=== PATIENT | female | born 2000 | race Caucasian/White ===

== ENCOUNTER 2023-10-05 18:28 | Emergency (ER) | payer OTHER, SELFPAY ==
[2023-10-05 18:29] VITALS: BMI 20.2
[2023-10-05 18:31] VITALS: BP 119/85
[2023-10-05 18:55] LABS: % Basophils 0.4 % (0-2); % Eosinophils 0.1 % (0-6); % Immature Granulocytes 0.2 % (0-0.5); % Lymphocytes 20.6 % (20.5-51.1); % Monocytes 5.7 % (1.7-9.3); Absolute Monocytes 0.6 10^3/uL (0.1-0.6); Absolute Neutrophils 7.1 10^3/uL (1.4-6.5); Hematocrit 39.2 % (37.0-47.0); Hemoglobin 13.5 g/dL (12.0-16.0); Mean Corp Hgb Conc. 34.4 g/dL (33.0-37.0); Mean Corpuscular Volume 92.9 fL (81.0-99.0); Mean Platelet Volume 9.1 fL (7.4-10.4); Nucleated Red Blood Cells % 0 %; Platelet Count 212 10^3/uL (130-400); Red Blood Cell Count 4.22 10^6/uL (4.20-5.40); Red Cell Dist. Width 13.6 % (11.5-14.5); White Blood Cell Count 9.7 10^3/uL (4.8-10.8)
[2023-10-05 19:07] LABS: HCG, Serum Qualitative Screen Negative
[2023-10-05 19:11] LABS: COVID-19 Antigen Negative (Negative)
[2023-10-05 19:12] LABS: ALT (SGPT) 29 U/L (0-35); AST (SGOT) 42 U/L (14-36); Albumin 4.3 g/dl (3.5-5.0); Alkaline Phosphatase 81 U/L (38-126); Blood Urea Nitrogen 15 mg/dl (7-17); Calcium 9.5 mg/dl (8.4-10.2); Carbon Dioxide 21 mmol/L (22-30); Chloride 105 mmol/L (98-107); Glucose 122 mg/dl (70-99); Potassium 3.6 mmol/L (3.5-5.1); Sodium 133 mmol/L (135-145); Total Bilirubin 0.6 mg/dl (0.2-1.3); eGFR > 60.00
[2023-10-05 20:08] VITALS: BP 114/65
--- NOTE | 2023-10-05 20:38 | ED.GENMED ---
History of Present Illness
General
Chief Complaint: Headache
Time Seen by Provider: 10/05/23 19:54
Travel History
Have you had any contact with someone who has COVID-19?: No
Do you have any symptoms of coronavirus? Fever > 100 degrees, chills, cough, shortness of breath, sore throat, loss of taste or smell, muscle aches, or headache?: No
History of Present Illness
History of Present Illness:
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 States the headache did resolve briefly for several
hours yesterday before returning. Headache was gradual in onset, associated shortness of air, nausea, and vomiting. No fevers or chills. No prior hx of migraines. LMP 2 weeks ago
Review of Systems
Review of Systems
Allergies reviewed?: Yes
All Other Systems: ROS reviewed and negative except as documented in HPI and ROS
Phy Exam
Physical Exam
Physical Exam:
GEN: Well appearing, NAD, WDWN
HEENT: Oral mucosa moist, no scleral icterus, no nasal congestion
Cardiac: Regular rate
Lung: No respiratory distress, no tachypnea
MSK: No gross deformity or injuries
Skin: Good color, no pallor or jaundice, no rashes
Neuro: AO x3; CN II-XII grossly intact. BUE strength 5/5 in all taveras, sensation intact and symmetric. BLE strength 5/5 in all taveras, sensation intact and symmetric
Psych: Calm, cooperative
Course
Orders/Labs/Results
Orders:
Orders
10/05/23 18:35
Test Result ONCE
10/05/23 18:46
COVID-19 Antigen Urgent
Source: Nasal Swab
Complete Blood Count/With Diff Urgent
Comprehensive Metabolic Panel Urgent
HCG, Serum Qualitative Screen Urgent
Influenza A+B Rapid Molecular Urgent
CESAR Source: Nasal Swab
Specimen Description:
10/05/23 20:37
0.9% Sodium Chloride 1000 ml [Nss] 1,000 ml IV BOLUS
Diphenhydramine [Benadryl] 12.5 mg IV NOW STA
Ketorolac [Toradol] 15 mg IV NOW STA
Metoclopramide [Reglan] 10 mg IV NOW STA
10/05/23 22:23
Acetaminophen [Tylenol] 1,000 mg PO NOW STA
Abnormal Lab Results
10/05/23
18:46
MCH 32.0 H pg
(27.0-31.0)
Absolute Neuts (auto) 7.1 H 10^3/uL
(1.4-6.5)
Sodium 133 L mmol/L
(135-145)
Carbon Dioxide 21 L mmol/L
(22-30)
Glucose 122 H mg/dl
(70-99)
AST 42 H U/L
(14-36)
10/05/23 18:46
10/05/23 18:46
Vital Signs
Initial and Last Documented VS:
Initial Vital Signs
Temp Pulse Resp BP Pulse Ox
98.3 F 71 18 119/85 96
10/05/23 18:31 10/05/23 18:31 10/05/23 18:31 10/05/23 18:31 10/05/23 18:31
Last Documented Vital Signs
Temp Pulse Resp BP Pulse Ox
98.3 F 71 18 105/53 97
10/05/23 18:31 10/05/23 18:31 10/05/23 18:31 10/05/23 22:00 10/05/23 22:15
MDM/Problems Addressed
MDM/Problems Addressed:
No indication for neuroimaging as the patient is neurologically intact. Headache resolved with treatment emergency department. Discussed further supportive care
*Critical Care Note
Total Time (30-74mins, 75-104mins- exclusive of procedures): Not Applicable
ED Attending Note
-
Portions of this chart may have been created with voice recognition software.� Occasional wrong word or��sound alike� substitutions may have occurred due to the inherent limitations of voice recognition software.
Discharge Plan
Departure
Patient Disposition: Home (Routine Discharge)
Date of Disposition: 10/05/23
Time of Disposition: 22:23
Patient with high blood pressure during this ER visit?: No
Discharge Problem:
Headache, migraine
Instructions: Migraines (DC)
Prescriptions:
No Action
No Current Medications
0
Interventions
Interventions:
*Risk Screen - Suicide Last Done: 10/05/23 18:33
*General Assessment Last Done: 10/05/23 18:33
*Neglect/Abuse Screening Last Done: 10/05/23 18:33
ED- Fall Risk Assessment Last Done: 10/05/23 22:47
*ED COVID-19 Vaccine History Last Done: 10/05/23 18:33
*Nursing Disposition Last Done: 10/05/23 22:47
ED- Neurological Assessment Last Done: 10/05/23 20:10
Discharge Date and Time
Discharge Date/Time: 10/05/23 22:48
Print Language: GEORGIAN
[2023-10-05] MEDS: NSS 1000 IV (20:52)
[2023-10-05] MEDS: TORADOL 15 MG IV (20:52)
[2023-10-05] MEDS: REGLAN 10 MG IV (20:54)
[2023-10-05] MEDS: BENADRYL 12.5 MG IV (20:56)
[2023-10-05 21:00] VITALS: BP 119/77
[2023-10-05 22:00] VITALS: BP 105/53
[2023-10-05] MEDS: TYLENOL 1000 MG PO (22:30)
== END 2023-10-05 22:48 | disposition home or self-care (01) ==
LOC: EMR 18:28
PROVIDERS: Student in an Organized Health Care Education/Training Program; EMERGENCY PHYSICIAN Emergency Medicine; FAMILY PHYSICIAN Physician Assistant
DX: G43.909 Migraine, unspecified, not intractable, without status migrainosus (principal); Z11.52 Encounter for screening for COVID-19
CPT/HCPCS: 99284; 96374; 96375 ×2; 96361 ×2; 80053; 84703; 85025; 87502; 87811

== ENCOUNTER 2023-10-06 16:04 | Emergency (ER) | payer OTHER, SELFPAY ==
[2023-10-06 16:05] VITALS: BP 118/73; BMI 20.4
--- NOTE | 2023-10-06 16:58 | ED.GENMED ---
History of Present Illness
General
Chief Complaint: Headache
Source: patient
Time Seen by Provider: 10/06/23 16:41
Travel History
Have you had any contact with someone who has COVID-19?: No
Do you have any symptoms of coronavirus? Fever > 100 degrees, chills, cough, shortness of breath, sore throat, loss of taste or smell, muscle aches, or headache?: No
History of Present Illness
History of Present Illness:
23-year-old female presents to the emergency room complaining of headache. Patient was seen here in the emergency yesterday for similar complaint. She began having this headache 3 days ago. It began as a mild to moderate headache and has
increased in intensity. She denies focal weakness numbness or tingling. She does have associated nausea and vomiting. She has light sensitivity and noise sensitivity. Patient felt better after being discharged yesterday but her headache
returned. No recent travel. No recent illness. Patient tested negative for COVID yesterday as well as other lab studies were unremarkable.
Phy Exam
Physical Exam
Physical Exam:
General: Awake, Alert, Oriented X3. Patient peers uncomfortable
Vitals: Afebrile, normal vital signs
Head: Atraumatic
Eyes: Pupils equal, EOMI
Throat: Airway intact, no exudates
Neck: Trachea midline, no nuchal rigidity
Lungs: Clear and equal b/l
Heart: Regular rate, no murmurs
Abd: Soft, Nontender, No pulsatile mass
Neuro: Cranial nerves intact, muscle strength equal bilaterally
Skin: Warm, dry, no rash
Extremities: pulses equal b/l, no edema
Course
Orders/Labs/Results
Orders:
Orders
10/06/23 16:57
0.9% Sodium Chloride 1000 ml [Nss] 1,000 ml IV BOLUS
Diphenhydramine [Benadryl] 25 mg IV NOW STA
Ketorolac [Toradol] 15 mg IV NOW STA
Prochlorperazine [Compazine] 10 mg IV NOW STA
10/06/23 16:58
CT Head W/o Iv Contrast Urgent
Comment:
Reason For Exam: new onset severe headache
10/06/23 17:29
[facility] Progressive Urgent
10/06/23 19:01
Fentanyl Citrate/Pf [Sublimaze] 25 mcg IV NOW STA
Vital Signs
Initial and Last Documented VS:
Initial Vital Signs
Temp Pulse Resp BP Pulse Ox
98.1 F 62 16 118/73 98
10/06/23 16:05 10/06/23 16:05 10/06/23 16:05 10/06/23 16:05 10/06/23 16:05
Last Documented Vital Signs
Temp Pulse Resp BP Pulse Ox
98.1 F 51 15 113/75 99
10/06/23 16:05 10/06/23 18:39 10/06/23 18:39 10/06/23 18:00 10/06/23 18:39
MDM/Problems Addressed
Differential Diagnosis Includes:
Migraine, mass, subarachnoid hemorrhage
MDM/Problems Addressed:
Patient presents with recurrent significant headache. Therefore CT head was obtained. CT shows the presence of a acute subdural hematoma centered at the confluence of the internal cerebral veins extending over the superior margin of the tentorium
bilaterally as well as in the posterior left parafalcine location. No evidence of compression of the underlying thyroid. This only explains the patient's symptoms
1755--Pt asked about any trauma again while mom was not in the room and answer remains no. 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
at the conference. After the procedure she had a significant headache which lasted for a few hours and then went away.
1817: Pt awake but now noted to be bradycardic, with low in the low 40's. Heart rates during her visit yesterday were 70's to 90's. Pt has bed at [facility]. [facility] not able to arrange ground transportation. We have attempted to arranged ground
transport but earliest time that pt could be picked up is 845 to 9pm so + transport time we are looking at 4 hours until she gets to neurosurgical care. Of note Dr. Mack was suspicious in this young patient with no trauma or medical hx that what we
are seeing on CT may in fact be something other than a subdural such as subarachnoid bleed. Therefore decision made for air transportation.
*Radiology
Radiology exam reviewed: radiology read reviewed
*Pulse Oximetry
Patient hypoxic: no
*Critical Care Note
Total Time (30-74mins, 75-104mins- exclusive of procedures): 40 min
comment:
Critical care statement: A total of 40 minutes of critical care time was provided for this patient. This includes management of unstable vital signs, evaluation of the patient at bedside, reviewing the patient's pertinent medical records, discussion
with consultants, review of old EKGs and review of pertinent medical records. This time with separate from time utilized to perform the aforementioned documented procedures
Patient Management
Social determinants of health affecting care: Strong social support
ED Attending Note
-
Portions of this chart may have been created with voice recognition software.� Occasional wrong word or��sound alike� substitutions may have occurred due to the inherent limitations of voice recognition software.
Discharge Plan
Departure
Patient Disposition: Acute Care Hospital
Date of Disposition: 10/06/23
Time of Disposition: 17:52
Condition: Serious
Discharge Problem:
Intracranial hemorrhage
Prescriptions:
No Action
No Current Medications
0
Referrals:
Janneth King PA-C [Family Provider] -
Hospital Transfer
Other hospital: [facility]
I certify that the patient requires transfer: Yes
Discussed case with accepting physician: Dr Mack
Reason for transfer: specialties available
Interventions
Interventions:
*Risk Screen - Suicide Last Done: 10/06/23 16:05
*General Assessment Last Done: 10/06/23 18:39
*Neglect/Abuse Screening Last Done: 10/06/23 16:05
ED- Fall Risk Assessment Last Done: 10/06/23 16:05
*ED COVID-19 Vaccine History Last Done: 10/06/23 16:05
*Nursing Disposition Last Done: 10/06/23 18:39
ED- Neurological Assessment Last Done: 10/06/23 18:11
Discharge Date and Time
Discharge Date/Time: 10/06/23 19:22
Print Language: MOROCCAN
[2023-10-06] MEDS: NSS 1000 IV (17:30)
[2023-10-06 17:40] VITALS: BP 115/78
[2023-10-06 17:51] VITALS: BP 112/72
[2023-10-06 18:00] VITALS: BP 113/75
[2023-10-06] MEDS: SUBLIMAZE 25 MCG IV (19:09)
[2023-10-08 12:58] LABS: Lyme Antibody Screen, EIA Negative (Negative)
== END 2023-10-06 19:22 | disposition short-term general hospital (02) ==
LOC: EMR 16:04
PROVIDERS: EMERGENCY PHYSICIAN Emergency Medicine; FAMILY PHYSICIAN Physician Assistant
DX: I62.9 Nontraumatic intracranial hemorrhage, unspecified (principal)
CPT/HCPCS: 99291; 96374; 96361; 70450; 86618